=== PATIENT | female | born 1955 | race Caucasian/White ===

== ENCOUNTER → 2017-06-29 | Outpatient (CLI) | payer BC ==
--- NOTE | 2017-07-03 08:32 | RADIOLOGY REPORT PS360 ---
DIG MAMM-SCREEN RAQUEL W/CAD CAD Screening COMPARISON: Digital mammograms 06/06/2015 and 06/08/2016 INDICATION: There is a history of breast cancer patient maternal aunt diagnosed after menopause. There has been previous biopsy left breast. TECHNIQUE: Standard CC and MLO images were obtained. R2 CAD reviewed. FINDINGS: The breasts are composed primarily of fat with scattered fibroglandular densities in the central portions of both breasts. Again noted is a biopsy clip left breast. There are couple benign-appearing calcination is right breast. There is no suspicious lesion and there are no suspicious microcalcifications. IMPRESSION: Fibrofatty parenchyma with no suspicious lesion seen recommend yearly follow-up BI-RADS CATEGORY: 2_Benign RECOMMENDED FOLLOWUP: 12M 12 MONTH FOLLOW-UP (A letter has been sent to the patient regarding results of the study.)
== END ==
LOC: RAD 06-03 16:00
DX: Z12.31 Encounter for screening mammogram for malignant neoplasm of breast (principal)
CPT/HCPCS: G0202